=== PATIENT | female | born 1980 ===

== ENCOUNTER 2024-02-20 06:44 | Day surgery (SDC) | payer OTHER ==
[2024-02-18 09:17] LABS: HEMATOCRIT 38.1 % (36.0-45.00); HEMOGLOBIN 13.3 g/dL (12.0-15.00); MEAN CELL VOLUME 94.5 fL (80.00-100.00); MEAN CORPUSCULAR HGB CONC 34.9 g/dl (32.0-36.0); PLATELET COUNT 302 K/uL (150-450); RED BLOOD COUNT 4.04 M/uL (4.00-6.00); RED CELL DISTRIBUTION WIDTH 12.9 % (11.5-14.5)
[2024-02-18 09:19] LABS: URINE APPEARANCE Clear; URINE BILIRRUBIN Negative (NEGATIVE); URINE BLOOD Negative; URINE COLOR Yellow; URINE GLUCOSE Negative (NEGATIVE); URINE KETONE Negative (NEGATIVE); URINE LEUKOCYTE Negative; URINE NITRATE Negative; URINE PROTEIN Negative (NEGATIVE); URINE UROBILINOGEN 0.2 E.U./dl
[2024-02-18 09:23] LABS: URINE BACTERIA 502.6 uL (0.0-1933); URINE EPITHELIAL CELLS 41.4 uL (0.0-38.8); URINE RBC 3.8 uL (0.0-20.8); URINE WBC 2.3 uL (0.0-23.2)
[2024-02-18 10:11] LABS: ALBUMIN 4.3 gm/dL (3.4-5.0); BILIRUBIN TOTAL 0.79 mg/dL (0.3-1.2); CALCIUM 9.5 mg/dL (8.5-10.1); CREATININE SERUM 0.74 mg/dL (0.55-1.02); GFR 86.06; GLOBULINA 3.9 G/DL (2.4-3.5); INR 1.02; PARTIAL THROMBOPLASTIN TIME 30.3 SECONDS (22.0-34.0); POTASSIUM 3.81 mEq/L (3.5-5.1); PROTHROMBIN TIME 11.1 SECONDS (9.0-11.5); TOTAL PROTEIN 8.2 gm/dL (6.4-8.2)
[2024-02-18 11:08] VITALS: BP 140/80; BP 170/100
[2024-02-20] MEDS ORDERED: CEFAZOLIN SODIUM 1,000 MG VIAL ONE (09:38)
[2024-02-20] MEDS ORDERED: MORPHINE SULFATE 4 MG/ML VIAL IV ONE (15:15)
== END 2024-02-20 17:20 | disposition home or self-care (01) ==
LOC: CIR.AMB 06:44
PROVIDERS: ATTEND Surgery
DX: D05.01 Lobular carcinoma in situ of right breast (principal); N60.81 Other benign mammary dysplasias of right breast; J45.909 Unspecified asthma, uncomplicated; I49.9 Cardiac arrhythmia, unspecified